=== PATIENT | male | born 1985 | race Caucasian/White ===

== ENCOUNTER 2022-01-28 12:24 | Emergency (ER) | payer MEDICAID ==
[~2022-01-28] VITALS: Ht 180.3 cm; Wt 108.9 kg
[2022-01-28 12:25] VITALS: BP_SYST 109
--- NOTE | 2022-01-28 13:03 | NUR ---
COVID-19 JIM SWAB OBTAINED, LABELED, AND SENT TO THE LAB.
[2022-01-28] MEDS ORDERED: ACETAMINOPHEN 500 MG TABLET ONE (14:15)
--- NOTE | 2022-01-28 14:42 | NUR ---
Patient to ER bed 04 to gown for evaluation. Side rails up.
[2022-01-28] MEDS ORDERED: PROCHLORPERAZINE EDISYLATE 10 MG/2 ML VIAL IM ONE (14:45)
[2022-01-28] MEDS ORDERED: KETOROLAC TROMETHAMINE 15 MG VIAL IM ONE (14:45)
[2022-01-28] MEDS ORDERED: DIPHENHYDRAMINE HCL 12.5 MG/5 ML UDC PO ONE (14:45)
--- NOTE | 2022-01-28 14:55 | NUR ---
RECEIVED PT FROM JARETH BOLANOS. PT BIB FAMILY MEMBER WITH C/O MIGRAINE THAT IS NOT RELIEVED BY HOME MEDICATIONS. PT STATES PAIN IS 9/10. PT IS AAOX4. PLACED ON NONREBREATHER AT 15LPM PER DR. SOLORIO. NORMAL S1S2 NOTED. DENIES N/V/D/C. SKIN WARM, INTACT. MOTHER AT BEDSIDE.
--- NOTE | 2022-01-28 15:11 | NUR ---
SCHEDULED MEDS GIVEN ORDERED.
[2022-01-28] MEDS ORDERED: IMI50 PO (16:45)
[2022-01-28] MEDS ORDERED: ONDA-8 TL (16:48)
[2022-01-28 16:56] VITALS: BP_SYST 109
--- NOTE | 2022-01-28 16:57 | NUR ---
Patient given written and verbal discharge instructions and verbalizes understanding. ER MD discussed with patient the results and treatment provided. Patient in stable condition. ID arm band removed. Rx of Imitrex and Zofran given. Patient educated on pain management and to follow up with PMD. Pain Scale 0/10. Opportunity for questions provided and answered. Medication side effect fact sheet provided.
== END 2022-01-28 16:57 | disposition home or self-care (01) ==
LOC: SED 12:24
DX: R51.9 Headache, unspecified (principal); R11.10 Vomiting, unspecified; Z79.899 Other long term (current) drug therapy
CPT/HCPCS: 99284; 70450; 76376; 96372; J1885; J0780